=== PATIENT | male | born 1955 | race Caucasian/White ===

== ENCOUNTER 2019-02-27 09:00 | Day surgery (SDC) | payer OTHER ==
[2019-02-27 10:04] VITALS: BMI 30.7
[2019-02-27] MEDS ORDERED: ONDANSETRON 4 MG/2 ML VIAL IVPUSH PRN (10:26)
[2019-02-27] MEDS ORDERED: ceFAZolin SODIUM 1 GM VIAL IVPB ONE (15:23)
[2019-02-27] MEDS ORDERED: GENTAMICIN 80MG PREMIX BAG IVPB ONE (15:23)
[2019-02-27] MEDS ORDERED: MIDAZOLAM HCL 5 MG/1 ML Single Dose Vial ONE (16:05)
--- NOTE | 2019-02-27 16:05 | OP ---
Operative Note - Note: Operative Date: 02/27/19 Pre-Operative Diagnosis: elevated psa and urethral stricture Operation: cystoscopy/urethral dilation/trans rectal prostate biopsy Findings: bulbous urethral stricture enlarged prostate with significant median lobe 2+ bladder trabeculation Post-Operative Diagnosis: Same as Pre-op Surgeon: Kilo Latham Anesthesia: General Specimens Removed: prostate biopsy samples Drains & Tubes with Location: [address]
[2019-02-27 17:34] VITALS: TEMP 97.4
[2019-02-27 17:43] VITALS: BP 146/83; PULSE 58
--- NOTE | 2019-02-27 23:58 | OP ---
DATE OF OPERATION: 02/27/2019 PREOPERATIVE DIAGNOSIS: Elevated prostate-specific antigen and urethral stricture. POSTOPERATIVE DIAGNOSIS: Elevated prostate-specific antigen and urethral stricture. PROCEDURE: Cystoscopy, urethral dilation of prostate biopsy. ATTENDING: Glen Latham M.D. ANESTHESIA: General anesthesia. DESCRIPTION OF PROCEDURE: The patient was brought in the operating room, placed in a supine position on the operating room table. Preoperative antibiotics and anesthesia were administered. The patient was then placed in the dorsal lithotomy position, prepped and draped in the usual sterile manner. Cystoscopy was performed, and the urethral stricture was encountered. Dilating sounds were utilized, and the urethra was dilated to 22 Polish. Cystoscopy was then performed. A large median lobe with significant obstruction was noted. 2+ bladder trabeculation was seen. No evidence of stones or neoplasm were noted. After the cystoscope was removed, a transrectal biopsy of the prostate was performed. Multiple biopsy cores were removed utilizing a disposable biopsy gun with the gun directed with the digit of the surgeon. No complications were noted. The biopsy specimens were labeled left prostate and right prostate and sent off separately to pathology for evaluation. The patient had received gentamicin and Kefzol preoperatively for surgical prophylaxis and will be maintained on Levaquin postoperatively. No complications were noted. The patient was left with a Jimenez catheter to straight drainage. The patient will follow up in 48 hours to have the catheter removed. This was done in order to insure that the patient would have no difficulty voiding after the procedure. GLEN ZHANG M.D. /[id number]
--- NOTE | 2019-03-02 09:52 | PATH ---
Surgical Pathology Report Patient Name: SABINA WELSH [facility]. Rec. #: [id number] /Age/Gender: 1955 (Age: 63) / M Account: [id number] Location: [facility] Taken: 02/27/2019 Received: 02/28/2019 Reported: 03/02/2019 Physicians: Kilo Latham Specimen(s) Received A: PROSTATE BIOPSY LEFT SIDE B: PROSTATE BIOPSY RIGHT SIDE Clinical History Elevated PSA, urethral stricture Final Diagnosis A. PROSTATE, LEFT SIDE, BIOPSY: BENIGN PROSTATE TISSUE WITH FOCAL ACUTE AND CHRONIC INFLAMMATION, GLANDULAR AND STROMAL HYPERPLASIA. B. PROSTATE, RIGHT SIDE, BIOPSY: BENIGN PROSTATE TISSUE WITH FOCAL MILD CHRONIC INFLAMMATION AND CALCIFICATIONS IN THE STROMA, GLANDULAR AND STROMAL HYPERPLASIA. Comment: Immunohistochemical stain p63 (blocks A1 and B1) performed and interpreted at [facility] highlights the basal cell layer of the prostatic glands, which supports a benign process. Positive and negative controls (internal if applicable) show appropriate results. Electronically Signed Lincoln Douglas M.D. Gross Description A. Received in formalin labeled "left side prostate biopsy," is a 2.0 x 0.7 x 0.1 cm aggregate of multiple lim, irregular to cylindrical portions of soft tissue. The formalin is filtered and the specimen is entirely submitted in one cassette. B. Received in formalin labeled "prostate biopsy right side," is a 1.5 x 0.5 x 0.1 cm aggregate of multiple lim, irregular to cylindrical portions of soft tissue. The formalin is filtered and the specimen is entirely submitted in one cassette. 02/28/2019 saudi02/28/2019
== END 2019-02-27 18:15 | disposition home or self-care (01) ==
LOC: JASU-SURG 09:00
PROVIDERS: ATTEND Urology
PROC: 0VB03ZX Excision of Prostate, Percutaneous Approach, Diagnostic (ICD-10-PCS; principal; 2019-02-27 11:00)
PROC: 0T7D8ZZ Dilation of Urethra, Via Natural or Artificial Opening Endoscopic (ICD-10-PCS; 2019-02-27 11:00)
DX: N35.919 Unspecified urethral stricture, male, unspecified site (principal); N40.0 Benign prostatic hyperplasia without lower urinary tract symptoms; N32.89 Other specified disorders of bladder; E11.9 Type 2 diabetes mellitus without complications
CPT/HCPCS: 88305-TC; 88342-TC; 94760

== ENCOUNTER 2022-09-14 03:45 | Day surgery (SDC) | payer OTHER ==
[2022-09-10 12:52] VITALS: BMI 35.4
[2022-09-14] MEDS ORDERED: PROPOFOL 20 ML ONE (09:04)
[2022-09-14] MEDS ORDERED: MIDAZOLAM HCL 2 MG/2 ML SINGLE DOSE VIAL ONE (09:05)
[2022-09-14] MEDS ORDERED: LACTATED RINGERS SOLUTION 1,000 ML IV SCH (10:00)
[2022-09-14 12:32] VITALS: PULSE 52
[2022-09-14 12:48] VITALS: BP 145/65; RESP 20; TEMP 97.6
== END 2022-09-14 12:30 | disposition home or self-care (01) ==
LOC: JASU-SURG 03:45
PROVIDERS: ATTEND Urology
PROC: 0TF4XZZ Fragmentation in Left Kidney Pelvis, External Approach (ICD-10-PCS; principal; 2022-09-14 09:00)
DX: N20.0 Calculus of kidney (principal)
CPT/HCPCS: 94760